=== PATIENT | male | born 1960 | race Caucasian/White ===

== ENCOUNTER 2018-09-29 06:09 | Day surgery (SDC) | payer BC, OTHER ==
[2018-09-28 15:51] VITALS: BMI 27.0
[2018-09-29] MEDS ORDERED: ePHEDrine SULFATE 50 MG/1 ML AMPULE ONE (07:29)
[2018-09-29] MEDS ORDERED: SUCCINYLCHOLINE CHLORIDE 200 MG/10 ML VIAL ONE (07:30)
[2018-09-29] MEDS ORDERED: PROPOFOL 20 ML ONE ×4 (07:30)
[2018-09-29] MEDS ORDERED: DEXAMETHASONE SOD PHOSPHATE 4 MG/1 ML VIAL ONE (07:32)
[2018-09-29] MEDS ORDERED: ceFAZolin SODIUM 1 GM VIAL ONE (07:32)
[2018-09-29] MEDS ORDERED: KETOROLAC TROMETHAMINE 30 MG/1 ML VIAL ONE (07:32)
[2018-09-29] MEDS ORDERED: ROPIVACAINE HCL 0.5% 30ML VIAL ONE (07:36)
[2018-09-29] MEDS ORDERED: MIDAZOLAM HCL 2 MG/2 ML SINGLE DOSE VIAL ONE ×2 (07:37)
[2018-09-29] MEDS ORDERED: ceFAZolin SODIUM 1 GM VIAL IVPB ONE (08:30)
--- NOTE | 2018-09-29 10:20 | HP ---
Satellite PMH - Chief Complaint Chief Complaint: right shoulder pain - Past Medical History Allergies/Adverse Reactions: Allergies Allergy/AdvReac Type Severity Reaction Status Date / Time gluten Allergy Verified 09/28/18 16:06 No Known Drug Allergies Allergy Verified 09/28/18 16:06 Cardiovascular: Yes: Hyperlipdemia. No: AFIB, Aneurysm, Aortic Insufficiency, Aortic Stenosis, CAD, CHF, Deep Vein Thrombosis, HTN, VA, Mitral Insufficiency, Mitral Stenosis, Murmur, Pulmonary Hypertension, Other Gastrointestinal: Yes: Other (celiac). No: Ascites, Cancer, Constipation, Crohn 's Disease, Diverticulitis, Diverticulosis, Esophageal Varices, Gastritis, GERD , GI Bleed, Hemorrhoids, Hiatal Hernia, Inflamatory Bowel Disease, Irritable Bowel Disease, Pancreatitis, Peptic Ulcer Disease, Ulcerative Colitis - Current Medications Current Medications: Home Medications Medication Instructions Recorded Aspirin Coated [Ecotrin -] 81 mg PO DAILY 09/28/18 Clopidogrel Bisulfate [Plavix] 75 mg PO DAILY 09/28/18 Multivitamin [One-Daily 1 each PO DAILY 09/28/18 Multi-Vitamin] Rosuvastatin Calcium [Crestor] 10 mg PO DAILY 09/28/18 Oxycodone HCl/Acetaminophen 1 - 2 tab PO Q6H #30 tab MDD 6 09/29/18 [Percocet 5-325 mg Tablet] Satellite Physical Exam - Physical Examination Vital Signs: Vital Signs Period Temp Pulse Resp BP Sys/Jung Pulse Ox Last 24 Hr 98.4 F 71 18 129/81 96 General Appearance: Well Nourished, Well Developed, Alert & Oriented x3 ENT: Clear Lung: Normal air movement Heart: Regular rate & rhythm Extremities: Other (right shoulder- + ttp, decr rom, + neer, + meza, + empty can, nvi MRI + rct) Neurological: Intact, Alert, Oriented Satellite Impression/Plan - Impression/Plan Impression: right shoulder rct Operative Procedure: right shoulder arthroscopy with SAD, mini-open RCT Date to be Performed: 09/29/18
--- NOTE | 2018-09-29 10:21 | OP ---
Operative Note - Note: Operative Date: 09/29/18 ([facility]) Pre-Operative Diagnosis: right shoulder rct Operation: right shoulder arthroscopy, SAD, mini-opne RCR Implants: 2 arthrex swivelocks Post-Operative Diagnosis: Same as Pre-op Surgeon: Abhishek Aguilar Safety Instructor: Julio Cesar Wahl) Anesthesiologist/CUSTOMER CARE CONSULTANT: Junior Fairchild Anesthesia: General, Local Specimens Removed: shavings Estimated Blood Loss (mls): 10 Operative Report Dictated: Yes
[2018-09-29] MEDS ORDERED: oxyCODONE HCL 5 MG TABLET PO PRN ×2 (10:26)
[2018-09-29] MEDS ORDERED: ONDANSETRON 4 MG/2 ML VIAL IVPUSH PRN (10:26)
[2018-09-29] MEDS ORDERED: LACTATED RINGERS SOLUTION 1,000 ML IV SCH (10:30)
[2018-09-29 10:58] VITALS: TEMP 97.4
--- NOTE | 2018-09-29 12:33 | OP ---
DATE OF OPERATION: 09/29/2018 PREOPERATIVE DIAGNOSIS: Right shoulder pain, rotator cuff tear, and impingement syndrome. POSTOPERATIVE DIAGNOSIS: Right shoulder pain, rotator cuff tear, and impingement syndrome. PROCEDURE: Right shoulder arthroscopy, subacromial decompression, arthroscopic synovectomy, and mini-open rotator cuff repair. PRIMARY SURGEON: Abhishek Aguilar MD CARPET INSPECTOR: Julio Cesar Wahl MD SECOND ASSOCIATE STORE DIRECTOR: SHAWN Engle MIME ARTIST: Junior Fairchild CRNA ANESTHESIA: Right interscalene block with LMA anesthesia. DRAINS: None. COMPLICATIONS: None. BLOOD LOSS: Minimal. BLOOD GIVEN: None. FLUID REPLACEMENT: 1000 mL. DESCRIPTION OF PROCEDURE: The patient is a 58-year-old male with a preoperative diagnosis of a right shoulder pain, impingement syndrome, and rotator cuff tear. After understanding the potential risks, complications, alternatives, and benefits of surgery versus nonsurgical treatment, the patient elected to undergo this procedure. The patient was brought into the operating room, peripheral IV placed, and IV sedation given. He was placed in the beach-chair position with ample padding throughout. LMA anesthesia had been induced. Two grams of IV Ancef were given, and the right upper extremity was prepped and draped in sterile fashion. The bony landmarks were marked out with a marking pen, and posterior portal was established. With a No. 15 scalpel blade, a diagnostic glenohumeral arthroscopy was performed. It was immediately apparent that the patient had very large significantly retracted rotator cuff tear, beyond the level of the glenoid and the biceps tendon. There was a lot of intraarticular synovitis, and the labrum was frayed. There was an area of grade 3 and a very small area about the size of a nickel of grade 4 chondromalacia of the humeral head. There was a lot of bursitis everywhere. Next, an anterior portal was established under direct visualization using a spinal needle. An ArthroCare Wand was used to ablate the synovitis in the glenohumeral joint as well as gently cauterizing the labrum. The labrum was probed. There was no tear that needed to be fixed, but it was tightened up with the gentle thermal shrinkage. Additional synovectomy was performed. The undersurface of the rotator cuff showed a complete tear with a full view of acromion. The area was debrided with a shaver, as well. Next, our attention was turned to the subacromial space. A lateral portal was established with a spinal needle. The patient had a tremendous amount of subacromial bursitis, and extensive debridement was done with the ArthroCare Wand. After the soft tissue bursectomy was done, it revealed a very large bony subacromial spur. This was taken down with a 5.5-mm oval tae, fine-tuned in reverse and then with a shaver. Photographs were taken before and after the deep compression. Afterwards, there was a lot of room for the rotator cuff. As mentioned, patient has a significantly torn retracted rotator cuff. A [place] and grasper was used to try to bring tissue forward. Mobilization was done with a Aguilar elevator and the ArthroCare wand. In the anterior 50% of the head, there was no rotator cuff whatsoever that could be brought forward. It was retracted, and what was left was not of good quality. Now, the posterior 45% or so was mobilized. I was able to get to move further and bring it down to cover the posterior 60% of the head. This would be the rotator cuff repair. It was mobilized further. The arthroscope then removed. Then, extended the lateral incision with another 15 scalpel blade. Subcutaneous hemostasis was achieved with a Bovie cautery. It went down through the lateral deltoid in the fascia in line with its fibers. We used a Gelpi retractor and a Teressa retractor was placed into the wound. Additional open bursectomy was performed. Next, I was able to use the Aguilar elevator and mobilize the rotator cuff further. Then, I used a rasp on the undersurface of the rotator cuff to really smooth it out. We were able to bring the rotator cuff forward to cover the posterior and the posteromedial 60% of the head. We put in a total of 5 FiberWires. The posterior 6 tails were put through one SwiveLock anchor, which brought down into the humeral head, and then, the anterior 4 tails put through another one to come down more medially. It came together quite nicely. I was able to move the rotator cuff unit with motion of the humerus and it covered approximately 60% to 65% of the humeral head. So, there was an anterior portion that was uncovered, which was probably the anterior most portion of the supraspinatus and subscapularis. The area was irrigated and washed out. I then supplemented the stability of the suture anchors by putting in 0 Vicryl sutures through the portion of the rotator cuff insertion that was left in place on purpose, that I had made a slit through to put the anchor in. I then closed this over the anchor, and this was quite . The deep deltoid fascia was closed was closed with 0 Vicryl. Final skin approximation was done with 2-0 Vicryl in the deep dermal layer and a running subcuticular 3-0 V-Loc suture. SwiftSet glue was then applied. Anterior and posterior portals were closed with nylon. The area was then washed and dried, covered with Aquacel dressing. He was placed into a shoulder immobilizer. Total surgical time was about 1 hour. There were no complications during the case. The patient tolerated the procedure quite well and was brought to the ambulatory recovery room in stable condition. Lily [id number]
[2018-09-29 13:34] VITALS: BP 125/79; PULSE 60
--- NOTE | 2018-09-30 12:57 | PATH ---
Surgical Pathology Report Patient Name: AARON STONER [facility]. Rec. #: [id number] /Age/Gender: 1960 (Age: 58) / M Account: [id number] Location: [facility] SURGICAL Taken: 09/29/2018 Received: 09/29/2018 Reported: 09/30/2018 Physicians: Abhishek Aguilar M.D. Specimen(s) Received SHAVINGS Clinical History Right shoulder tear Final Diagnosis SHOULDER SHAVINGS, RIGHT, ARTHROSCOPY: FRAGMENTS OF BENIGN CARTILAGE, DENSE FIBROCONNECTIVE TISSUE, ADIPOSE TISSUE, SKELETAL MUSCLE, AND SKIN. Electronically Signed Monica Rowe M.D. Gross Description Received in formalin, labeled "right shoulder shavings," is a 5.0 x 4.3 x 0.4 cm. aggregate of lr-yellow soft tissue fragments. A printing sales representative portion is submitted in one cassette. /09/29/201809/29/2018
== END 2018-09-29 13:37 | disposition home or self-care (01) ==
LOC: JASU-SURG 06:09
PROVIDERS: ATTEND Orthopaedic Surgery
PROC: 0LQ10ZZ Repair Right Shoulder Tendon, Open Approach (ICD-10-PCS; 2018-09-29)
PROC: 0RNJ4ZZ Release Right Shoulder Joint, Percutaneous Endoscopic Approach (ICD-10-PCS; principal; 2018-09-29 08:00)
PROC: 0RBJ4ZZ Excision of Right Shoulder Joint, Percutaneous Endoscopic Approach (ICD-10-PCS; 2018-09-29 08:00)
DX: M75.101 Unspecified rotator cuff tear or rupture of right shoulder, not specified as traumatic (principal); M75.41 Impingement syndrome of right shoulder
CPT/HCPCS: 88304-TC; 94760

== ENCOUNTER 2020-02-08 04:38 | Day surgery (SDC) | payer BC, OTHER ==
[2020-02-07 13:24] VITALS: BMI 27.0
[2020-02-08] MEDS ORDERED: ASPIRIN 81 MG CHEWABLE TABLETS ONE (07:59)
[2020-02-08] MEDS ORDERED: ASPIRIN 81 MG CHEWABLE TABLETS PO ONE (08:01)
[2020-02-08 08:43] LABS: URINE APPEARANCE CLEAR; URINE BILIRUBIN NEGATIVE (NEGATIVE); URINE COLOR YELLOW; URINE GLUCOSE (UA) NEGATIVE (NEGATIVE); URINE KETONE NEGATIVE (NEGATIVE); URINE LEUK ESTERASE NEGATIVE (NEGATIVE); URINE NITRITE NEGATIVE (NEGATIVE); URINE PROTEIN NEGATIVE (NEGATIVE); URINE UROBILINOGEN 0.2 mg/dL (0.2-1.0)
--- NOTE | 2020-02-08 09:54 | HP ---
Satellite H - Chief Complaint Chief Complaint: right wrist pain - Past Medical History Allergies/Adverse Reactions: Allergies Allergy/AdvReac Type Severity Reaction Status Date / Time gluten Allergy Verified 02/08/20 08:13 No Known Drug Allergies Allergy Verified 02/08/20 08:13 Cardiovascular: Yes: Hyperlipdemia. No: AFIB, Aneurysm, Aortic Insufficiency, Aortic Stenosis, CAD, CHF, Deep Vein Thrombosis, HTN, PA, Mitral Insufficiency, Mitral Stenosis, Murmur, Pulmonary Hypertension, Other Gastrointestinal: Yes: Other (celiac). No: Ascites, Cancer, Constipation, Crohn's Disease, Diverticulitis, Diverticulosis, Esophageal Varices, Gastritis, GERD, GI Bleed, Hemorrhoids, Hiatal Hernia, Inflamatory Bowel Disease, Irritable Bowel Disease, Pancreatitis, Peptic Ulcer Disease, Ulcerative Colitis - Current Medications Current Medications: Home Medications Medication Instructions Recorded Aspirin Coated [Ecotrin -] 81 mg PO DAILY 09/28/18 Multivitamin [One-Daily 1 each PO DAILY 09/28/18 Multi-Vitamin] Rosuvastatin Calcium [Crestor] 10 mg PO UTDICT 09/28/18 [place]-3/Dha/Epa/Fish Oil [Fish Oil 1 each PO DAILY 02/07/20 500 mg Softgel] Hydrocodone/Acetaminophen 1 each PO Q6H #30 tablet MDD 4 02/08/20 [Hydrocodone-Acetamin 5-325 mg] Satellite Physical Exam - Physical Examination Vital Signs: Vital Signs Period Temp Pulse Resp BP Sys/Jung Pulse Ox Last 24 Hr 97.5 F 67 18 122/81 95 General Appearance: Well Nourished, Well Developed, Alert & Oriented x3 ENT: Clear Lung: Normal air movement Extremities: Other (right wrist- + swelling, + ttp, decr rom, nvi) Neurological: Intact, Alert, Oriented Satellite Impression/Plan - Impression/Plan Impression: right wrist tfcc tear, SL ligament tear Operative Procedure: right wrist arthroscopy, tfcc debridement, SL ligament reconstruction, DIC capsulodesis Date to be Performed: 02/08/20
[2020-02-08] MEDS ORDERED: ROPIVACAINE HCL 0.5% 30ML VIAL ONE (10:02)
[2020-02-08] MEDS ORDERED: MIDAZOLAM HCL 2 MG/2 ML SINGLE DOSE VIAL ONE ×2 (10:03)
[2020-02-08] MEDS ORDERED: LIDOCAINE HCL 1%, 10 MG/ML (20ML VIAL) ONE (10:12)
[2020-02-08] MEDS ORDERED: ceFAZolin SODIUM 1 GM VIAL IVPB ONE (10:50)
[2020-02-08] MEDS ORDERED: EPHEDRINE SULFATE/0.9% NACL/PF 50 MG/10 ML SYRINGE NR ONE (11:59)
--- NOTE | 2020-02-08 13:46 | OP ---
Operative Note - Note: Operative Date: 02/08/20 ([facility]) Pre-Operative Diagnosis: right wrist tfcc tear, SL ligament tear Operation: right wrist arthroscopy, TFCC debridement, SL ligament reconstruction, DIC capsulodesis Post-Operative Diagnosis: Same as Pre-op Surgeon: Abhishek Aguilar Charging Car Operator: Umesh Dang ([facility]) Anesthesia: General, Local Specimens Removed: tenosynovium Estimated Blood Loss (mls): 5
[2020-02-08 15:51] VITALS: BP 113/71; PULSE 75; TEMP 96.9
--- NOTE | 2020-02-09 16:18 | OP ---
DATE OF OPERATION: 02/08/2020 PREOPERATIVE DIAGNOSIS: Right wrist triangular fibrocartilage complex tear and scapholunate ligament tear with carpal instability. POSTOPERATIVE DIAGNOSIS: Right wrist triangular fibrocartilage complex tear and scapholunate ligament tear with carpal instability. PROCEDURE: 1. Right wrist arthroscopy, triangular fibrocartilage complex debridement. 2. Right wrist open DIC (dorsal intercarpal ligament) capsulodesis and scapholunate ligament repair/reconstruction. SURGEON: Glen Aguilar MD SUPPLY MANAGER: Julio Cesar Wahl MD SECOND SUPPLY MANAGER: SHAWN Engle ANESTHESIOLOGIST: Jenny Riggins, REF-DAMASCENER ANESTHESIA: Right supraclavicular block. DRAINS: None. COMPLICATIONS: None. SPECIMEN: Tenosynovium, right wrist. BLOOD LOSS: None. BLOOD GIVEN: None. FLUID REPLACEMENT: Plasma-Lyte 1500 mL. This patient is a 59-year-old male with a preoperative diagnosis of right wrist pain, a TFCC tear, SL ligament tear, and intercarpal instability. After understanding the potential risks, complications, alternatives, and benefits of surgery versus nonsurgical treatment, the patient elected to undergo this procedure. He understands his right wrist will likely never be perfect. There may be exercises or activities that he cannot do without pain. He also may develop a DCDISI, or a SLAC wrist deformity and eventually osteoarthritis of the wrist. He understands this, and other potential risks and complications were discussed. He was brought to the operating room. Peripheral IV placed. IV sedation given. Two grams of IV Ancef were given. A right supraclavicular block was performed. LMA anesthesia was induced. He was placed into supine position. The right upper extremity had a tourniquet applied, and the right upper extremity was prepped and draped in sterile fashion, put into the traction tower for the wrist arthroscopy. The distal radius and distal ulna as well as the EPL and ECU tendons were marked out with a marking pen. The 6R, 6U, and 3-4 portals were palpated, marked out, and the skin incised with a number-15 scalpel blade. First, an outflow cannula was placed into the 6U portal. First, a sharp-tipped trocar, then a blunt-tipped trocar was used to get through the capsule and then into the joint. A small joint arthroscopy scope/wrist arthroscopy scope was placed into the 3-4 portal, and then, under direct visualization, using a spinal needle and then a blunt trocar, I put a shaver into the 6R portal. Patient had a lot of dorsal synovitis as well as ulnar-sided synovitis. This was removed with the shaver, then cauterized. Patient had a lot of injury around the scapholunate ligament. There were a lot of frayed, torn edges. These were also debrided with the straight shaver and cauterized. The TFCC itself looked good. There was a portion at the attachment to the radius which was quite frayed. This was debrided, but it did not seem like it went all the way through the TFCC, and the central portion looked good as well as the ulnar attachment. The area was copiously irrigated and washed out, again explored; nothing else was seen except for some additional dorsal synovitis which was removed. The arthroscopy equipment was then removed from the wrist. The arthroscopy tower was removed. His right upper extremity was elevated, exsanguinated with an Esmarch bandage and tourniquet inflated to 250 mmHg. This portion of the case was done under 3.8 loupe magnification. A DIC capsulodesis transverse incision was marked out over the radial styloid and the radioscaphoid joint. The incision was made with a number-15 scalpel blade. Subcutaneous hemostasis was achieved with the bipolar cautery. Dissection done with the Littler scissors. The EPL tendon was identified, freed up from its retinaculum and a Shahzad drain with irrigation on it for lubrication was put around it and the EPL tendon was retracted in an ulnar direction. Next, the first dorsal wrist compartment tendons were retracted in a radial direction, exposing the space between these 2 compartments. Great care was taken to identify and preserve the crossing sensory nerves of the radial nerve as well as any branches of the radial artery. Next, I put in an identifying K-wire. It was in the scaphoid, and I used it as a reference guide for the location of my dorsal capsular flap. I then made a capsular flap, still attached proximally to the distal radius of about 1.5 cm long and 1 cm wide and incised it with a fresh number-15 scalpel blade, peeled it off the back of the carpus, reflected it proximally. There was a lot of synovitis on its undersurface. This was removed and passed off the field as specimen, synovium, right wrist. Next, I got x-rays. There was a scapholunate diastasis at this point. The scaphoid was rotated. Therefore, it was derotated with K-wire and putting the wrist in mild extension and ulnar deviation. I then put the K-wire across in the distal half of the scaphoid, into the capitate, while holding the scapholunate junction tightly closed. X-rays were taken, and it looked quite good. It closed down the space. The K-wire was then bent, cut, and a pin cap applied. The patient actually had the entire scapholunate ligament still attached to the lunate, and it looked like it was quite good. I was able to pull on it. There was excellent substance. The scaphoid was completely bare. I roughened up the back of the scaphoid with a rasp. I then drilled a hole with a 0.062 K-wire and put in a mini Mitek suture anchor. The preloaded 2-0 Ethibond sutures were then brought from the scaphoid through the scapholunate ligament still attached to the lunate and brought down to the scaphoid. I tied it down. Next, I put in another more proximal mini Mitek suture anchor in similar fashion in the dorsal aspect of the proximal half of the scaphoid and brought down the first half of the capsulodesis flap. I then did the same with a third mini Mitek suture anchor just over the dorsal ridge of the scaphoid, that I also had freshened up with the rasp, and I was able to bring down the rest of the distal half of the capsulodesis flap onto the dorsal portion and ridge of the scaphoid. Next, I used the Ethibond sutures still attached and looped them through from the capsulodesis flap through the scapholunate ligament on the lunate x2. It all came together quite nicely. I did 2 other additional supplemental Ethibond suture stitches, getting the scapholunate ligament on the lunate to the capsular flap of the dorsal aspect of the radius. It overall came together quite nicely. Final x-rays were taken. The area was irrigated and washed out. The self-retaining retractors were removed. The Shahzad drains were removed. A 4-0 undyed Vicryl was used to close the dorsal retinaculum over the extensor tendons, as well as the deep dermal layer. Final skin reapproximation was done with a running subcuticular 4-0 Biosyn stitch. The arthroscopy portals were closed with horizontal mattress 4-0 nylon sutures. The area was then washed and dried. Steri-Strips were applied to the incision, and Xeroform was used to cover the arthroscopy portals and at the base of the K-wire. The area was covered with sterile 4 x 4 gauze, fluffs to the fingers, Webril, and a volar, 4-hinge Ortho-Glass splint was applied with the wrist in slight hyperextension. The tourniquet was taken down after total tourniquet time of approximately 80 minutes. There were no complications during the case. The patient tolerated the procedure quite well and was brought to the ambulatory recovery room in stable condition. Julio Cesar Wahl MD dictating for MD GLEN Noel M.D. [id number]
--- NOTE | 2020-02-10 14:37 | PATH ---
Surgical Pathology Report Patient Name: AARON STONER [facility]. Rec. #: [id number] /Age/Gender: 1960 (Age: 59) / M Account: [id number] Location: [facility] SURGICAL Taken: 02/08/2020 Received: 02/09/2020 Reported: 02/10/2020 Physicians: Julio Cesar Wahl M.D. Specimen(s) Received TENOSYNOVIUM Clinical History SL ligament tear, TFCC tear Final Diagnosis TENOSYNOVIUM, EXCISION: TENOSYNOVIAL TISSUE WITH FOCAL FIBROSIS. Electronically Signed Leslie Ramirez M.D. Gross Description Received in formalin labeled "tenosynovium," are 3 lr wisdom portions of soft tissue ranging from 0.5-0.7 cm in greatest dimension. The specimens are submitted in toto in one cassette. /02/09/2020 saudi/02/09/2020
== END 2020-02-08 15:51 | disposition home or self-care (01) ==
LOC: JASU-SURG 04:38
PROVIDERS: ATTEND Orthopaedic Surgery
PROC: 0RBN4ZZ Excision of Right Wrist Joint, Percutaneous Endoscopic Approach (ICD-10-PCS; 2020-02-08)
PROC: 0XQG0ZZ Repair Right Wrist Region, Open Approach (ICD-10-PCS; principal; 2020-02-08 09:30)
DX: S63.511A Sprain of carpal joint of right wrist, initial encounter (principal); X58.XXXA Exposure to other specified factors, initial encounter; Y93.9 Activity, unspecified; Y92.9 Unspecified place or not applicable; Y99.9 Unspecified external cause status
CPT/HCPCS: 76000-TC-FY; 81003; 88304-TC; 94760